=== PATIENT | female | born 1985 ===

== ENCOUNTER 2019-02-22 08:53 | Inpatient (IN) ==
[2019-02-22 08:35] LABS: Basophils # 0.1 K/mcL (0.0-0.2); Basophils % 0.5 %; Eosinophils # 0.1 K/mcL (0.0-0.6); Eosinophils % 0.7 %; Hematocrit 37.1 % (35.3-44.9); Hemoglobin 12.9 g/dL (11.5-15.4); Immature Granulocytes % 2.4 % (0-4); Lymphocytes # 1.8 K/mcL (0.6-4.6); Lymphocytes % 13.8 %; Mean Corpuscular HGB Conc 34.8 g/dL (31.6-35.5); Mean Corpuscular Hemoglobin 32.7 pg (28.0-33.3); Mean Corpuscular Volume 94.2 fL (83.0-100.0); Mean Platelet Volume 10.8 fL (9.4-12.4); Monocytes # 0.8 K/mcL (0.0-1.3); Monocytes % 6.1 %; Platelet Count 112 K/mcL (140-400); Red Blood Count 3.94 M/mcL (3.82-4.97); Red Cell Distribution Width 12.4 % (11.5-14.5); Segmented Neutrophils % 76.5 %; White Blood Count 13.1 K/mcL (4.3-11.1)
[2019-02-22 08:41] LABS: Amphetamine Screen,Urine Negative ng/mL (Cutoff=1000); Barbiturate Screen,Urine Negative ng/mL (Cutoff=200); Benzodiazepines Screen,Urine Negative ng/mL (Cutoff=200); Cannabinoid Screen,Urine Negative ng/mL (Cutoff = 50); Cocaine Screen,Urine Negative ng/mL (Cutoff= 300); Opiate Screen,Urine Negative ng/mL (Cutoff=300); Phencyclidine Screen,Urine Negative ng/mL (Cutoff=25)
[~2019-02-22 08:53] MED LIST: Epidural Premix (fent/bupiv) 110 ML EP SCH; Famotidine 20 MG/2 ML VIAL IVP PRN; Metoclopramide 10 MG/2 ML VIAL IVP PRN; Naloxone 0.4 MG/ML INJ IVP PRN; Ringers Solution, Lactated 1,000 ML IVC SCH; Ringers Solution, Lactated 1,000 ML ONE
[2019-02-22] MEDS ORDERED: Chloroprocaine/PF 20 ML VIAL INFILT ONE (10:04)
[2019-02-22] MEDS ORDERED: *HR* Oxytocin 10 UNIT/ML VIAL IM ONE (10:05)
[2019-02-22] MEDS ORDERED: Ondansetron 4 MG/2 ML VIAL ONE (10:05)
[2019-02-22] MEDS ORDERED: Metoclopramide 10 MG/2 ML VIAL IVP ONE (10:13)
[2019-02-22] MEDS ORDERED: Azithromycin 1,000 MG in 0.9 % Sodium Chloride 250 ML IVPB STA (10:14)
[2019-02-22] MEDS ORDERED: Famotidine 20 MG TABLET PO SCH (10:15)
[2019-02-22] MEDS ORDERED: Naloxone 0.4 MG/ML INJ IVP PRN (10:18)
[2019-02-22] MEDS ORDERED: *HR* Morphine Sulfate/PF 10 MG/10 ML AMPUL ONE (10:18)
[2019-02-22] MEDS ORDERED: *HR* Promethazine 25 MG/ML VIAL IVP PRN (10:18)
[2019-02-22] MEDS ORDERED: *HR* HYDROmorphone (PF) 1 MG/ML SYRINGE IVP PRN (10:18)
[2019-02-22] MEDS ORDERED: Ondansetron 4 MG/2 ML VIAL IVP ONE (10:18)
[2019-02-22] MEDS ORDERED: *HR* OxyCODONE Immed Rel 5 MG TABLET PO PRN (10:18)
[2019-02-22] MEDS ORDERED: *HR* Meperidine 25 MG/ML SYRINGE IVP PRN (10:18)
[2019-02-22] MEDS ORDERED: Azithromycin 500 MG in 0.9 % Sodium Chloride 250 ML IVPB ONE (10:25)
[2019-02-22] MEDS ORDERED: Ringers Solution, Lactated 1,000 ML ONE (10:41)
[2019-02-22] MEDS: *HR* HYDROmorphone (PF) 1 MG/ML SYRINGE IVP PRN ×2 (11:45→12:03)
[2019-02-22] MEDS ORDERED: Oxytocin 20 units/ LR 1000 mL 20 UNIT/1,000 ML BAG IVC ONE (13:18)
[2019-02-22] MEDS ORDERED: Sennosides 8.6 MG TABLET PO PRN (13:43)
[2019-02-22] MEDS ORDERED: Oxytocin 20 units/ LR 1000 mL 20 UNIT/1,000 ML BAG IVC SCH (13:43)
[2019-02-22] MEDS ORDERED: Metoclopramide 10 MG/2 ML VIAL IVP PRN (13:43)
[2019-02-22] MEDS ORDERED: Ondansetron 4 MG/2 ML VIAL IVP PRN (13:43)
[2019-02-22] MEDS ORDERED: Simethicone 80 MG TAB.CHEW PO PRN (13:43)
[2019-02-22] MEDS: Ibuprofen 600 MG TABLET PO PRN (19:14)
[2019-02-23] MEDS: Ibuprofen 600 MG TABLET PO PRN ×3 (00:23→16:58)
[2019-02-23 05:51] LABS: Basophils # 0.1 K/mcL (0.0-0.2); Basophils % 0.3 %; Eosinophils % 0.1 %; Hematocrit 36.2 % (35.3-44.9); Hemoglobin 12.3 g/dL (11.5-15.4); Immature Granulocytes % 1.1 % (0-4); Lymphocytes # 1.4 K/mcL (0.6-4.6); Lymphocytes % 8.8 %; Mean Corpuscular Hemoglobin 32.3 pg (28.0-33.3); Mean Platelet Volume 10.8 fL (9.4-12.4); Monocytes # 0.8 K/mcL (0.0-1.3); Monocytes % 5.2 %; Neutrophils # 13.2 K/mcL (1.6-8.9); Platelet Count 107 K/mcL (140-400); Red Blood Count 3.81 M/mcL (3.82-4.97); Red Cell Distribution Width 12.5 % (11.5-14.5); Segmented Neutrophils % 84.5 %; White Blood Count 15.7 K/mcL (4.3-11.1)
[2019-02-23] MEDS: Prenatal Vit/FA 1 EACH TABLET PO SCH (10:58)
[2019-02-23] MEDS: *HR* OxyCODONE/APAP 5/325 TABLET PO PRN (21:00)
[2019-02-24] MEDS: Ibuprofen 600 MG TABLET PO PRN ×3 (00:07→13:56)
[2019-02-24] MEDS: *HR* OxyCODONE/APAP 5/325 TABLET PO PRN (05:29)
[2019-02-24] MEDS: Prenatal Vit/FA 1 EACH TABLET PO SCH (09:12)
[2019-02-24 09:42] VITALS: BP 101/65
[2019-02-24] MEDS ORDERED: Ondansetron ODT 4 MG TAB.RAPDIS SL ONE (10:39)
== END 2019-02-24 15:55 | disposition home or self-care (01) | DRG 788 ==
LOC: 1NENULAB → 1NENUOBS 13:43
PROVIDERS: ADMIT Advanced Practice Midwife; ATTEND Advanced Practice Midwife

== ENCOUNTER 2021-11-10 05:45 | Inpatient (IN) ==
[2021-11-10] MEDS ORDERED: *HR* Meperidine 25 MG/ML SYRINGE IVP PRN (06:19)
[2021-11-10] MEDS ORDERED: *HR* HYDROmorphone PF 0.5 MG/0.5 ML SYRINGE IVP PRN (06:19)
[2021-11-10] MEDS ORDERED: Promethazine 6.25 MG in Water for inj. (sterile) 20 ML IVPB PRN (06:19)
[2021-11-10] MEDS ORDERED: *HR* Labetalol 20 MG/4 ML SYRINGE IVP PRN (06:19)
[2021-11-10] MEDS ORDERED: Acetaminophen IV 1,000 MG/100 ML BAG IVPB PRN (06:19)
[2021-11-10] MEDS ORDERED: Metoclopramide 10 MG/2 ML VIAL IVP PRN ×2 (06:22→11:39)
[2021-11-10] MEDS ORDERED: Famotidine 20 MG/2 ML VIAL IVP ONE (06:22)
[2021-11-10] MEDS ORDERED: CeFAZolin 2,000 MG/120 ML BAG IVPB ONE (06:22)
[2021-11-10] MEDS ORDERED: Azithromycin 500 MG in 0.9 % Sodium Chloride 250 ML IVPB PRN (06:22)
[2021-11-10] MEDS ORDERED: Famotidine 20 MG/2 ML VIAL IVP PRN (06:22)
[2021-11-10] MEDS ORDERED: Ringers Solution, Lactated 1,000 ML IVC ONE (06:22)
[2021-11-10] MEDS ORDERED: Ringers Solution, Lactated 1,000 ML IVC SCH (06:30)
[2021-11-10] MEDS ORDERED: Ringers Solution, Lactated 1,000 ML ONE ×2 (06:34→07:05)
[2021-11-10 06:53] LABS: Basophils # 0.1 K/mcL (0.0-0.2); Basophils % 0.4 %; Eosinophils # 0.1 K/mcL (0.0-0.6); Eosinophils % 0.6 %; Hemoglobin 12.7 g/dL (11.5-15.4); Immature Granulocytes % 2.3 % (0-4); Lymphocytes % 17.3 %; Mean Corpuscular HGB Conc 34.3 g/dL (31.6-35.5); Mean Corpuscular Hemoglobin 32.2 pg (28.0-33.3); Mean Corpuscular Volume 93.7 fL (83.0-100.0); Mean Platelet Volume 11.2 fL (9.4-12.4); Monocytes # 0.7 K/mcL (0.0-1.3); Monocytes % 6.1 %; Neutrophils # 8.3 K/mcL (1.6-8.9); Platelet Count 110 K/mcL (140-400); Red Blood Count 3.95 M/mcL (3.82-4.97); Red Cell Distribution Width 13.2 % (11.5-14.5); Segmented Neutrophils % 73.3 %; White Blood Count 11.4 K/mcL (4.3-11.1)
[2021-11-10] MEDS ORDERED: Ketorolac 30 MG/ML VIAL ONE (07:04)
[2021-11-10] MEDS ORDERED: EPHEDrine 50 MG/ML VIAL ONE (07:04)
[2021-11-10] MEDS ORDERED: *HR* FentaNYL (PF) 100 MCG/2 ML VIAL ONE (07:04)
[2021-11-10] MEDS ORDERED: *HR* Morphine Sulfate/PF 10 MG/10 ML AMPUL ONE (07:04)
[2021-11-10] MEDS ORDERED: Acetaminophen IV 1,000 MG/100 ML BAG IVPB ONE (07:05)
[2021-11-10] MEDS ORDERED: Oxytocin 30 UNIT/503 ML BAG IVC ONE (07:17)
[2021-11-10] MEDS ORDERED: *HR* Midazolam HCl 2 MG/2 ML VIAL ONE (08:05)
[2021-11-10 09:13] LABS: Amphetamine Screen,Urine Negative ng/mL (Cutoff=1000); Barbiturate Screen,Urine Negative ng/mL (Cutoff=200); Benzodiazepines Screen,Urine Negative ng/mL (Cutoff=200); Cannabinoid Screen,Urine Negative ng/mL (Cutoff = 50); Cocaine Screen,Urine Negative ng/mL (Cutoff= 300); Opiate Screen,Urine Negative ng/mL (Cutoff=300); Phencyclidine Screen,Urine Negative ng/mL (Cutoff=25)
[2021-11-10] MEDS ORDERED: OXYTOCIN/RINGERS LACTATE 10 UNIT/166.6 ML BAG IVC ONE (11:39)
[2021-11-10] MEDS ORDERED: Rho Immune Globulin 1,500 UNIT SYRINGE IM ONE (11:39)
[2021-11-10] MEDS ORDERED: Simethicone 80 MG TAB.CHEW PO PRN (11:39)
[2021-11-10] MEDS: Ondansetron 4 MG/2 ML VIAL IVP PRN ×2 (12:20→19:38)
[2021-11-10] MEDS: Ibuprofen 600 MG TABLET PO SCH ×3 (12:20→22:18)
[2021-11-10] MEDS: Acetaminophen 325 MG TABLET PO SCH ×2 (12:21→18:16)
[2021-11-10] MEDS: Ringers Solution, Lactated 1,000 ML IVC SCH ×2 (12:34→19:32)
[2021-11-11] MEDS: Ibuprofen 600 MG TABLET PO SCH ×2 (04:09→12:47)
[2021-11-11 05:03] LABS: Basophils % 0.1 %; Eosinophils % 0.1 %; Hematocrit 32.2 % (35.3-44.9); Hemoglobin 10.6 g/dL (11.5-15.4); Immature Granulocytes % 1.4 % (0-4); Immature Platelets 8.4 % (1.1-6.1); Lymphocytes # 1.5 K/mcL (0.6-4.6); Lymphocytes % 11.4 %; Mean Corpuscular HGB Conc 32.9 g/dL (31.6-35.5); Mean Corpuscular Hemoglobin 31.3 pg (28.0-33.3); Mean Platelet Volume 11.2 fL (9.4-12.4); Monocytes # 0.8 K/mcL (0.0-1.3); Monocytes % 5.6 %; Neutrophils # 10.9 K/mcL (1.6-8.9); Platelet Count 102 K/mcL (140-400); Red Blood Count 3.39 M/mcL (3.82-4.97); Segmented Neutrophils % 81.4 %; White Blood Count 13.4 K/mcL (4.3-11.1)
[2021-11-11 06:35] VITALS: BP 103/65; PULSE 96; TEMP 98.5; O2SAT 99
[2021-11-11] MEDS: *HR* OxyCODONE Immed Rel 5 MG TABLET PO PRN ×2 (08:39→12:47)
[2021-11-11] MEDS ORDERED: Prenatal Vit/FA 1 EACH TABLET PO SCH (09:00)
== END 2021-11-11 19:00 | disposition home or self-care (01) | DRG 788 ==
LOC: 1NENULAB 05:45 → 1NENUOBS 11:19
PROVIDERS: ADMIT Student in an Organized Health Care Education/Training Program; ATTEND Student in an Organized Health Care Education/Training Program